=== PATIENT | male | born 1970 | race African-American/Black ===

== ENCOUNTER 2017-08-22 21:37 | Emergency (ER) | payer SELFPAY ==
[~2017-08-22] VITALS: Ht 160 cm; Wt 78.2 kg
--- NOTE | 2017-08-22 21:54 | PHYS DOC ---
Adult General Chief Complaint Chief Complaint: GENERALIZED BODY ACHES HPI HPI Patient is a 47 year old M who presents with bilateral flank pain for the past 24 hours. Patient states he has a history of kidney problems and gets frequent kidney infections when she follows up at . Patient states that over the past 24 hours he's had worsening flank pain with some nausea and vomiting and a cough. Patient denies any dysuria. Patient denies any abdominal pain. Agent denies any fevers. Patient has no other complaints. Review of Systems Review of Systems GEN: Denies fevers, chills, sweats HEENT: Denies blurred vision, sore throat CV: Denies chest pain RESP: Denies shortness of air, cough GI: Flank pain NEURO: Denies confusion, dizziness MSK: Denies weakness, joint pain/swelling All other systems were reviewed and found to be within normal limits, except as documented in this note. Allergies Allergies Allergies Coded Allergies Type Severity Reaction Last Updated Verified No Known Drug Allergies 08/22/17 No Physical Exam Physical Exam GEN.: Mild distress. Alert and oriented. HEENT: Head is normocephalic, atraumatic NECK: Supple. LUNGS: CTAB. HEART: RRR, S1, S2 present. Peripheral pulses intact ABDOMEN: Soft, mild bilateral CVA tenderness to palpation, no abdominal tenderness, no guarding, no abdominal distention, no rebound tenderness. Positive bowel sounds. EXTREMITIES: Without any cyanosis. NEUROLOGIC: Normal speech, normal tone PSYCHIATRIC: Normal affect, normal mood. SKIN: No ulcerations EKG EKG [] Radiology/Procedures Radiology/Procedures Chest x-ray shows right upper lobe infiltrate CT scan abdomen and pelvis without contrast: IMPRESSION: 1. 8.0 cm masslike lesion within the left upper quadrant which appears contiguous with a severely enlarged left adrenal gland, with surrounding fatty stranding. 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 The possibility of a solid adrenal gland mass is not excluded. This appears separate from the traversing vessels and is unlikely an aneurysm. Postcontrast imaging is indicated. 2. No evidence of nephrolithiasis or obstructive uropathy. 3. Healed granulomatous disease.[] Course & Med Decision Making Course & Med Decision Making Pertinent Labs and Imaging studies reviewed. (See chart for details) ED course: Patient was seen and examined emergency room abdominal lab work was ordered along with a CT scan abdomen pelvis, UA, influenza swabs CT results were discussed with the patient who states he knows about the 8 cm mass of the left adrenal gland and the hemorrhage and he states is nothing new and is old. Updated patient on x-ray results and plan to treat with antibiotic' s. Patient's influenza A positive and updated the patient and the plan to treat with Tamiflu Updated patient on UA results and the doxycycline will treat both MDM: After reviewing the chart, CC/HPI/PMH, physical exam, [lab results], [ radiological results], I do not believe the patient has a intra-abdominal emergency warranting further workup and/or admission at this time. I believe the patient has atypical pneumonia with influenza that we treated with antibiotics and discharged home. The patient is in no acute respiratory distress requiring oxygen and the need for admission. Patient states he has a history of UTIs secondary to his chronic kidney problems in his urine is concerning for UTI therefore recommended he follow-up as PCP for further evaluation and a doxycycline will help treat his UTI. Patient is stable for discharge. Additional verbal discharge instructions were provided to the patient and that if symptoms get worse or any new symptoms arise that are worrisome to the patient he is to return to the emergency room immediately [] Dragon Disclaimer Dragon Disclaimer This electronic medical record was generated, in whole or in part, using a voice recognition dictation system. Departure Departure: Impression: Primary Impression: Atypical pneumonia Additional Impressions: Hemorrhage of both adrenal glands Influenza A Disposition: HOME, SELF-CARE Condition: IMPROVED Referrals: PCP,NO (PCP) Patient Instructions: Pneumonia, Adult Additional Instructions: Please follow-up with your family doctor next one to 2 days and return symptoms increase Scripts Oseltamivir Phosphate (TAMIFLU) 75 Mg Capsule 1 CAP PO BID, #10 CAP Prov: RADHA MAURO DO 08/22/17 Doxycycline Hyclate (DOXYCYCLINE HYCLATE) 100 Mg Tablet. 1 TAB PO BID, #14 TAB Prov: RADHA MAURO DO 08/22/17 Problem Qualifiers RADHA MAURO DO Aug 22, 2017 21:54
[2017-08-22] MEDS: IV NORMAL SALINE 1,000ML 1,000 ML IV ONE (22:10)
[2017-08-22 22:32] LABS: BASO # 0.1 x10^3/uL (0.0-0.2); BASO % 1 % (0-3); EOS % 0 % (0-3); HEMATOCRIT 50.2 % (39.0-53.0); HEMOGLOBIN 16.9 g/dL (13.0-17.5); LYMPH # 0.7 x10^3/uL (1.0-4.8); LYMPH % 10 % (24-48); MEAN CORPUSCULAR HEMOGLOBIN 28 pg (25-35); MEAN CORPUSCULAR HGB CONC 34 g/dL (31-37); MEAN CORPUSCULAR VOLUME 84 fL (79-100); MONO # 0.8 x10^3/uL (0.0-1.1); MONO % 11 % (0-9); NEUT # 5.7 x10^3uL (1.8-7.7); NEUT % 78 % (31-73); PLATELET COUNT 178 x10^3/uL (140-400); RED CELL DISTRIBUTION WIDTH 14.1 % (11.5-14.5); WHITE BLOOD COUNT 7.3 x10^3/uL (4.0-11.0)
[2017-08-22 22:40] LABS: ALBUMIN 3.7 g/dL (3.4-5.0); ALBUMIN/GLOBULIN RATIO 0.8 (1.0-1.7); CALCIUM 8.9 mg/dL (8.5-10.1); CREATININE 1.4 mg/dL (0.7-1.3); GFR 65.4; POTASSIUM 3.3 mmol/L (3.5-5.1); TOTAL BILIRUBIN 0.8 mg/dL (0.2-1.0); TOTAL PROTEIN 8.1 g/dL (6.4-8.2)
--- NOTE | 2017-08-22 22:46 | RAD ---
EXAM: Abdomen and pelvis CT without intravenous contrast. HISTORY: Flank pain. TECHNIQUE: Computed tomographic images of the abdomen and pelvis were obtained without contrast. Multiplanar reformatting was performed. *One or more of the following individualized dose reduction techniques were utilized for this examination: 1. Automated exposure control. 2. Adjustment of the mA and/or kV according to patient size. 3. Use of iterative reconstruction technique. COMPARISON: None. FINDINGS: Evaluation of the lower thorax demonstrates a 2 mm benign pleural based nodular opacity within the left lower lobe. There are granulomata within the liver and spleen. No suspicious hepatic lesion is seen. The gallbladder is unremarkable. The pancreas is unremarkable. The right adrenal gland is diffusely enlarged. There is masslike enlargement of the left adrenal gland which is contiguous with a rounded masslike structure with attenuation greater than simple fluid within the left upper quadrant. This masslike structure measures approximately 8 cm in maximum dimension and appears separate from the adjacent traversing veins and arteries. There is surrounding fatty stranding. There is a 1 cm hypodense lesion within the mid zone of the left kidney, likely a cyst. There is no evidence of obstructive uropathy or nephroureterolithiasis. The bladder is decompressed. The uterus is retroverted. No abnormally thickened or dilated loops of bowel are seen. There is no pathologically enlarged lymph node. There is no suspicious osseous lesion. IMPRESSION: 1. 8.0 cm masslike lesion within the left upper quadrant which appears contiguous with a severely enlarged left adrenal gland, with surrounding fatty stranding. 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 The possibility of a solid adrenal gland mass is not excluded. This appears separate from the traversing vessels and is unlikely an aneurysm. Postcontrast imaging is indicated. 2. No evidence of nephrolithiasis or obstructive uropathy. 3. Healed granulomatous disease. Electronically signed by: Afua Live MD (08/22/2017 10:42 PM) [facility]
[2017-08-22] MEDS ORDERED: DOXY100T9 PO (23:05)
[2017-08-22 23:11] LABS: INFLUENZA A PATIENT POSITIVE (NEGATIVE); INFLUENZA B PATIENT NEGATIVE (NEGATIVE)
[2017-08-22 23:13] LABS: CLARITY,URINE CLEAR; COLOR,URINE YELLOW; GLUCOSE,URINE NEG (NEG)
[2017-08-22 23:15] LABS: BACTERIA,URINE MANY /HPF (0-FEW); BILIRUBIN,URINE NEG (NEG); NITRITE,URINE POS (NEG); RBC,URINE OCC /HPF (0-2); UROBILINOGEN,URINE 2 mg/dL (0.2 mg/dL); WBC,URINE RARE /HPF (0-4)
[2017-08-22] MEDS ORDERED: OSEL75CA PO (23:15)
[2017-08-22 23:16] VITALS: BP 108/62
--- NOTE | 2017-08-23 07:32 | RAD ---
Portable AP view CXR: Clinical indications: Cough and congestion. Comparison: None available. Findings: No acute lung infiltrate or pleural effusion or pulmonary edema or lung mass or pneumothorax is seen. The heart size, pulmonary vasculature, mediastinum and both bobbi are unremarkable. Impression: No acute radiographic abnormality is seen.
== END 2017-08-22 23:38 | disposition home or self-care (01) ==
LOC: ER 21:37
DX: J09.X1 Influenza due to identified novel influenza A virus with pneumonia (principal); E27.49 Other adrenocortical insufficiency
CPT/HCPCS: 36415; 71045; 74176; 80053; 81001; 83690; 85025; 87086; 87804; 96360; 99285-25; J7030